=== PATIENT | female | born 2000 | race Caucasian/White ===

== ENCOUNTER 2023-07-09 17:35 | Inpatient (IN) | payer MEDICAID ==
[~2023-07-09] VITALS: Ht 165.1 cm; Wt 54.9 kg
[2023-07-09 18:12] VITALS: BP 139/74; PULSE 90; RESP 18; TEMP 97.5; O2SAT 100
[2023-07-09 19:03] LABS: BASOPHILS % (AUTO) 0.3 % (0.0-2.0); EOSINOPHILS # (AUTO) 0.1 K/uL (0-0.4); HEMATOCRIT 40.4 % (36-48); HEMOGLOBIN 13.6 g/dL (12.0-16.0); LYMPHOCYTES # (AUTO) 2.6 K/uL (2.5-16.5); LYMPHOCYTES % (AUTO) 30.6 % (20.5-51.1); MEAN CORPUSCULAR HEMOGLOBIN 31 pg (27-31); MEAN CORPUSCULAR HGB CONC 34 g/dL (33-37); MEAN CORPUSCULAR VOLUME 90.9 fL (80-94); MONOCYTES # (AUTO) 0.6 K/uL (0.8-1.0); MONOCYTES % (AUTO) 7.6 % (1.7-9.3); NEUTROPHILS # (AUTO) 5.1 K/uL (1.8-7.7); NEUTROPHILS % (AUTO) 60.5 % (42.2-75.2); PLATELET COUNT (AUTO) 166 K/uL (140-450); RED BLOOD CELL COUNT(AUTO) 4.44 MIL/uL (4.20-5.40); RED CELL DISTRIBUTION WIDTH 14.9 % (11.6-13.7); WHITE BLOOD COUNT (AUTO) 8.4 K/uL (4.8-10.8)
[2023-07-09 19:21] LABS: APPEARANCE,URINE CLEAR (CLEAR); BILIRUBIN,URINE NEGATIVE (NEGATIVE); BLOOD, URINE NEGATIVE (NEGATIVE); COLOR,URINE YELLOW (YELLOW); LEUKOCYTE ESTERASE ,URINE NEGATIVE (NEGATIVE); NITRITE, URINE NEGATIVE (NEGATIVE); PH,URINE 7.5 (5.0-9.0); PROTEIN,URINE NEGATIVE (NEGATIVE); UGLUCOSE NEGATIVE (NEGATIVE); UROBILINOGEN,URINE 0.2 EU/dL (0.2 - 1)
[2023-07-09 19:27] LABS: ALBUMIN 4.1 g/dL (3.4-5.0); ANION GAP 11.2 (8-16); CALCIUM 8.9 mg/dL (8.5-10.1); CARBON DIOXIDE 28.2 mmol/L (21-32); CREATININE 0.8 mg/dL (0.6-1.3); POTASSIUM 3.4 mmol/L (3.5-5.1); TOTAL BILIRUBIN 0.5 mg/dL (0.0-1.0); TOTAL PROTEIN, SERUM 7.5 g/dL (6.4-8.2)
[2023-07-09] MEDS ORDERED: IBUPROFEN 400 MG TAB PO ONE (20:25)
[2023-07-09] MEDS ORDERED: ONDANSETRON 4 MG ODT PO ONE (20:25)
[2023-07-09] MEDS ORDERED: IBUP-1842 PO (20:45)
[2023-07-09] MEDS ORDERED: ONDA-188 SL (20:45)
[2023-07-09] MEDS ORDERED: NACL 0.9% 1,000 ML IV ONE (22:50)
[2023-07-09] MEDS ORDERED: MORPHINE SULFATE 2 MG/ML SYR IVP STA (23:08)
[2023-07-09] MEDS ORDERED: ONDANSETRON 4 MG/2 ML VIAL IVP ONE (23:35)
[2023-07-09] MEDS ORDERED: HYDROcodone/APAP 5/325 MG 1 TAB TAB PO PRN (23:45)
[2023-07-09] MEDS ORDERED: ACETAMINOPHEN 325 MG TAB PO PRN (23:45)
[2023-07-09] MEDS ORDERED: ONDANSETRON 4 MG/2 ML VIAL IVP PRN (23:45)
[2023-07-09] MEDS ORDERED: MORPHINE SULFATE 2 MG/ML SYR IVP PRN (23:45)
[2023-07-09] MEDS ORDERED: NACL 0.9% 1,000 ML IV SCH (23:45)
[2023-07-10 00:15] LABS: INR 1.07 (0.8-1.2); PARTIAL THROMBOPLASTIN TIME 28.9 secs (22-35.6); PROTHROMBIN TIME 11.2 secs (10.8-13.4)
[2023-07-10 07:28] LABS: BASOPHILS % (AUTO) 0.4 % (0.0-2.0); EOSINOPHILS # (AUTO) 0.1 K/uL (0-0.4); EOSINOPHILS % (AUTO) 1.2 % (0.0-4.0); HEMATOCRIT 38.5 % (36-48); HEMOGLOBIN 12.8 g/dL (12.0-16.0); LYMPHOCYTES # (AUTO) 2.3 K/uL (2.5-16.5); LYMPHOCYTES % (AUTO) 32.4 % (20.5-51.1); MEAN CORPUSCULAR HEMOGLOBIN 30 pg (27-31); MEAN CORPUSCULAR HGB CONC 33 g/dL (33-37); MEAN CORPUSCULAR VOLUME 91.6 fL (80-94); MONOCYTES # (AUTO) 0.6 K/uL (0.8-1.0); PLATELET COUNT (AUTO) 131 K/uL (140-450); RED BLOOD CELL COUNT(AUTO) 4.21 MIL/uL (4.20-5.40); RED CELL DISTRIBUTION WIDTH 14.2 % (11.6-13.7)
[2023-07-10 08:00] LABS: ALBUMIN 3.5 g/dL (3.4-5.0); ANION GAP 13.9 (8-16); CALCIUM 8.2 mg/dL (8.5-10.1); CARBON DIOXIDE 22.8 mmol/L (21-32); CREATININE 0.7 mg/dL (0.6-1.3); POTASSIUM 3.7 mmol/L (3.5-5.1); TOTAL BILIRUBIN 0.8 mg/dL (0.0-1.0); TOTAL PROTEIN, SERUM 6.4 g/dL (6.4-8.2)
[2023-07-10 12:10] VITALS: O2SAT 99
[2023-07-10 12:16] VITALS: BP 115/70; PULSE 69; RESP 13; TEMP 98; O2SAT 69
== END 2023-07-10 12:18 | disposition home or self-care (01) | DRG 532 ==
LOC: MED 17:35 → MTU 23:45
PROVIDERS: ADMIT Student in an Organized Health Care Education/Training Program; ATTEND Student in an Organized Health Care Education/Training Program
DX: N80.9 Endometriosis, unspecified (principal); Z79.899 Other long term (current) drug therapy; Z91.018 Allergy to other foods
CPT/HCPCS: 36415; 76856; 80053; 81003; 82150; 84703; 85025; 85610; 85730; 86886; 86900; 86901; 96374; 96375; 99285; J2270; J2405; Q0092; Q0162; Q9967

== ENCOUNTER 2024-06-04 10:40 | Emergency (ER) | payer MEDICAID ==
[~2024-06-04] VITALS: Ht 162.6 cm; Wt 49.9 kg
[~2024-06-04 10:40] MED LIST: IBUP-1842 PO; ONDA-188 SL
[2024-06-04 10:43] VITALS: BP 116/82; PULSE 68; RESP 17; TEMP 98.3; O2SAT 100
[2024-06-04 10:55] VITALS: O2SAT 100
[2024-06-04] MEDS: ONDANSETRON 4 MG ODT PO ONE (11:10)
[2024-06-04] MEDS: KETOROLAC 60 MG/2 ML VIAL IM ONE (11:11)
[2024-06-04 11:19] LABS: BILIRUBIN,URINE NEGATIVE (NEGATIVE); BLOOD, URINE 2+ (NEGATIVE); COLOR,URINE YELLOW (YELLOW); LEUKOCYTE ESTERASE ,URINE 2+ (NEGATIVE); NITRITE, URINE NEGATIVE (NEGATIVE); PROTEIN,URINE NEGATIVE (NEGATIVE); UGLUCOSE NEGATIVE (NEGATIVE); UROBILINOGEN,URINE 0.2 EU/dL (0.2 - 1)
[2024-06-04 11:27] LABS: BACTERIA,URINE OCCASSIONAL /HPF (None Seen); SQUAMOUS EPITHELIAL CELL,UR 0-3 (FEW) /LPF (0-3 (FEW)); WBC,URINE 20-60 /HPF (0-5)
[2024-06-04 11:29] LABS: RBC,URINE 20-50 /HPF (0-5)
[2024-06-04 11:30] LABS: APPEARANCE,URINE HAZY (CLEAR)
[2024-06-04] MEDS ORDERED: CIPR500T4 PO (11:44)
[2024-06-04] MEDS ORDERED: ONDA8TAB87 PO (11:44)
[2024-06-04] MEDS ORDERED: IBUP-2213 PO (11:44)
== END 2024-06-04 11:48 | disposition home or self-care (01) ==
LOC: MED 10:40
DX: N39.0 Urinary tract infection, site not specified (principal); R11.2 Nausea with vomiting, unspecified; R19.7 Diarrhea, unspecified; R50.9 Fever, unspecified; R03.0 Elevated blood-pressure reading, without diagnosis of hypertension; F17.200 Nicotine dependence, unspecified, uncomplicated; Z90.49 Acquired absence of other specified parts of digestive tract; Z98.890 Other specified postprocedural states; Z79.899 Other long term (current) drug therapy; Z91.018 Allergy to other foods
CPT/HCPCS: 81001; 81025; 87086; 96372; 99283; J1885; Q0162